=== PATIENT | male | born 1985 | race Two or more races ===

== ENCOUNTER 2023-11-06 20:59 | Emergency (ER) | payer OTHER ==
[~2023-11-06] VITALS: Ht 167.6 cm; Wt 88.9 kg
[2023-11-06] MEDS ORDERED: KETOROLAC TROMETHAMINE 60 MG VIAL IM STA (22:30)
[2023-11-06] MEDS ORDERED: DEXAMETHASONE SODIUM PHOSPHATE 4 MG/ML VIAL IM STA (22:31)
[2023-11-06] MEDS ORDERED: ACETAMINOPHEN 500 MG GEL..CAP PO STA (22:31)
== END 2023-11-06 22:50 | disposition home or self-care (01) ==
LOC: ER 21:00
DX: M94.0 Chondrocostal junction syndrome [Tietze] (principal)

== ENCOUNTER 2025-07-17 16:56 | Emergency (ER) | payer OTHER ==
[~2025-07-17] VITALS: Ht 167.6 cm; Wt 85.3 kg
[2025-07-17 18:51] VITALS: BP 178/108; O2SAT 100
[2025-07-17] MEDS ORDERED: KETOROLAC TROMETHAMINE 30 MG VIAL IM STA (20:14)
[2025-07-17] MEDS ORDERED: DEXAMETHASONE SODIUM PHOSPHATE 4 MG/ML VIAL IM STA (20:14)
[2025-07-17] MEDS ORDERED: ORPHENADRINE CITRATE 30 MG/ML AMPUL IM STA (20:14)
[2025-07-17] MEDS ORDERED: ORPHENADRINE CITRATE 30 MG/ML AMPUL ONE (20:24)
[2025-07-17] MEDS ORDERED: DEXAMETHASONE SODIUM PHOSPHATE 4 MG/ML VIAL ONE (20:24)
[2025-07-17] MEDS ORDERED: KETOROLAC TROMETHAMINE 30 MG VIAL ONE (20:24)
[2025-07-17 20:44] LABS: BASO % 0.4 % (0.1-1.2); EOS # 0.06 (0.04-0.54); EOS % 0.7 % (0.7-7.0); LYMPH # 2.29 (1.18-3.74); LYMPH % 25.4 % (19.3-53.1); MEAN PLATELET VOLUME 9.30 fl (9.4-12.4); MONO # 0.64 (0.24-0.82); MONO % 7.1 % (4.7-12.5); NEUT # 5.98 (1.56-6.13); NEUT % 66.2 % (34.0-71.1); RED CELL DISTRIBUTION WIDTH 11.8 % (11.6-14.4)
[2025-07-17 21:22] LABS: INR 1.03
[2025-07-17 21:28] LABS: ALT/SGPT 34.0 U/L (12-78); AST/SGOT 22.0 U/L (15-37); BILIRUBIN TOTAL 0.79 mg/dL (0.3-1.2); BUN CREA RATIO 10.0 (7.0-25.0); CREATININE SERUM 0.87 mg/dL (0.70-1.30); GFR 96.7; GLOBULINA 3.7 G/DL (2.4-3.5); GLUCOSE FASTING 110.0 mg/dL (65-100); OSMOLALITY SERUM 281.0 MOSM/KG (275-295)
[2025-07-17 21:41] LABS: COVID-19 AG NEGATIVE (NEGATIVE)
[2025-07-17] MEDS ORDERED: IBU600 MG PO (22:59)
== END 2025-07-17 23:10 | disposition home or self-care (01) ==
LOC: ER 16:56
PROVIDERS: Physician Assistant Medical
DX: M94.0 Chondrocostal junction syndrome [Tietze] (principal); J06.9 Acute upper respiratory infection, unspecified; R07.89 Other chest pain; R05.8 Other specified cough; Z20.822 Contact with and (suspected) exposure to COVID-19